=== PATIENT | female | born 1990 | race African-American/Black ===

== ENCOUNTER 2016-06-08 21:29 | Emergency (ER) | payer OTHER ==
[2016-06-08 21:44] VITALS: BP 98/68
[2016-06-08] MEDS ORDERED: FLUT9.9S NS (22:49)
--- NOTE | 2016-06-08 22:49 | PHYS DOC ---
Past Medical History Past Medical History: Asthma Past Surgical History: Additional Information: nonsmoker Alcohol Use: Heavy Additional Information: WINE 1 GLASS A DAY Drug Use: None Adult General Chief Complaint Chief Complaint: SORE THROAT HPI HPI Patient is a 25 year old female who presents with left ear pain and sore throat for 2 days. She denies fever, nasal congestion, or cough. She is concerned about strep throat because she works at the [employer] and does not want to spread germs. Her PCP is Dr. Rivka Angela. Review of Systems Review of Systems Constitutional: Denies fever or chills [] Eyes: Denies change in visual acuity, redness, or eye pain [] HENT: Denies nasal congestion. Reports left ear pain and sore throat. Respiratory: Denies cough or shortness of breath [] Musculoskeletal: Denies back pain or joint pain [] Integument: Denies rash or skin lesions [] Neurologic: Denies headache, focal weakness or sensory changes [] Allergies Allergies Allergies Coded Allergies Type Severity Reaction Last Updated Verified No Known Drug Allergies 06/08/16 No Physical Exam Physical Exam Constitutional: Well developed, well nourished, no acute distress, non-toxic appearance. [] HENT: Normocephalic, atraumatic, bilateral external ears normal, oropharynx moist, no oral exudates, nose normal. Bilateral TMs without erythema or bulging. There is no posterior pharyngeal erythema or tonsillar edema. Bilateral nasal turbinates are swollen and erythematous, with the left more swollen than the right. Eyes: PERRLA, EOMI, conjunctiva normal, no discharge. [] Neck: Normal range of motion, no tenderness, supple, no stridor. [] Cardiovascular: Heart rate regular rhythm, no murmur [] Lungs & Thorax: Bilateral breath sounds clear to auscultation without wheezes, rales, or rhonchi. Skin: Warm, dry, no erythema, no rash. [] Neurologic: Alert and oriented X 3, normal motor function, normal sensory function, no focal deficits noted. [] Psychologic: Affect normal, judgement normal, mood normal. [] Current Patient Data Vital Signs Vital Signs Date Time Temp Pulse Resp B/P Pulse Ox O2 Delivery O2 Flow Rate FiO2 06/08/16 21:44 97.9 71 18 99 Room Air 97.9 Lab Values rapid strep negative EKG EKG [] Radiology/Procedures Radiology/Procedures [] Course & Med Decision Making Course & Med Decision Making Pertinent Labs and Imaging studies reviewed. (See chart for details) [] Rayna Disclaimer Rayna Disclaimer This electronic medical record was generated, in whole or in part, using a voice recognition dictation system. Departure Departure Impression: Primary Impression: Otalgia of left ear Disposition: HOME, SELF-CARE Condition: STABLE Referrals: RIVKA ANGELA (PCP) Patient Instructions: Otalgia-Brief Additional Instructions: Your strep test was negative. Your pain appears to be due to nasal congestion. Please use the prescribed nasal spray on a daily basis to decrease swelling and drainage from the nose. Please follow up with your primary care provider within the next week. Return to the emergency department if you have any new or concerning symptoms. Scripts Fluticasone Propionate (Flonase Allergy Relief)9.9 Ml [place].susp2 Sprays NS DAILY #1 BOTTLE Prov:ROSALIA ADAMS 06/08/16 ROSALIA ADAMS Jun 08, 2016 22:49
[2016-06-09 09:46] LABS: NEGATIVE OBC STREP NEG; POSITIVE OBC STREP POS
== END 2016-06-08 23:03 | disposition home or self-care (01) ==
LOC: ER 21:29
DX: H92.02 Otalgia, left ear (principal); J45.909 Unspecified asthma, uncomplicated
CPT/HCPCS: 87070; 87880; 99283

== ENCOUNTER 2017-02-06 09:00 | Emergency (ER) | payer OTHER ==
[~2017-02-06] VITALS: Ht 167.6 cm; Wt 73.5 kg
[~2017-02-06 09:00] MED LIST: FLUT9.9S NS
--- NOTE | 2017-02-06 10:33 | PHYS DOC ---
Past Medical History Past Medical History: Asthma Past Surgical History: Alcohol Use: Heavy Additional Information: PT REPORTS DRINK WINE A COUPLE TIMES A WEEK Drug Use: None Adult General Chief Complaint Chief Complaint: VAGINAL PROBLEM HPI HPI Patient is a 26 year old -[place] female presents with vaginal itching and pain in discharge. Patient states she frequently gets yeast infections and feels as though she may currently have a yeast infection. Patient took Monistat [id number] yesterday with limited improvement. His abdominal pain, pelvic pain, recent or known STD exposure. Last menstrual period 3 weeks ago.] Review of Systems Review of Systems ROS as per HPI. All other systems were reviewed and found to be within normal limits, except as documented in this note. Allergies Allergies Allergies Coded Allergies Type Severity Reaction Last Updated Verified No Known Drug Allergies 06/08/16 No Physical Exam Physical Exam Constitutional: Well developed, well nourished, no acute distress, non-toxic appearance. [] HENT: Normocephalic, atraumatic, bilateral external ears normal, oropharynx moist, no oral exudates, nose normal. [] : External until he, normal, mucosa, mild erythema, copious cottage cheeselike discharge, cervix closed. lesions identified. Minimal tenderness on exam.[] Back: No tenderness, no CVA tenderness. [] Neurologic: Alert and oriented X 3, normal motor function, normal sensory function, no focal deficits noted. [] Psychologic: Affect normal, judgement normal, mood normal. [] Current Patient Data Vital Signs Vital Signs Date Time Temp Pulse Resp B/P (MAP) Pulse Ox O2 Delivery O2 Flow Rate FiO2 02/06/17 10:18 62 103/64 (77) 99 Room Air 02/06/17 09:06 98.7 16 98.7 Lab Values Laboratory Tests Test 02/06/17 09:07 02/06/17 09:12 POC Urine HCG, Qualitative Hcg negative (Negative) Urine Collection Type Void Urine Color Yellow Urine Clarity Hazy Urine pH 6.5 Urine Specific [place] 1.015 Urine Protein Negative mg/dL (NEG-TRACE) Urine Glucose (UA) Negative mg/dL (NEG) Urine Ketones (Stick) Negative mg/dL (NEG) Urine Blood Negative (NEG) Urine Nitrite Negative (NEG) Urine Bilirubin Negative (NEG) Urine Urobilinogen Dipstick 0.2 mg/dL (0.2 mg/dL) Urine Leukocyte Esterase Large (NEG) Urine RBC 1-2 /HPF (0-2) Urine WBC 5-10 /HPF (0-4) Urine Squamous Epithelial Cells Mod /LPF Urine Bacteria Few /HPF (0-FEW) Urine Mucus Slight /LPF Microbiology 02/06/17 Wet Prep - Final, Complete EKG EKG [] Radiology/Procedures Radiology/Procedures [] Course & Med Decision Making Course & Med Decision Making Pertinent Labs and Imaging studies reviewed. (See chart for details) [Antibiotic prescription provided for bacterial vaginosis and candidiasis. PCP/ FILTERING MACHINE TENDER follow-up recommended.] Dragon Disclaimer Dragon Disclaimer This electronic medical record was generated, in whole or in part, using a voice recognition dictation system. Departure Departure Impression: Primary Impression: Vaginitis and vulvovaginitis, unspecified Disposition: 01 HOME, SELF-CARE Condition: GOOD Referrals: RIVKA ANGELA (PCP) KATEY CAMPOS DO Feb 06, 2017 10:33
[2017-02-06 11:11] LABS: BILIRUBIN,URINE NEGATIVE (NEG); GLUCOSE,URINE NEGATIVE (NEG); NITRITE,URINE NEGATIVE (NEG); PH,URINE 6.5; PROTEIN,URINE NEGATIVE (NEG-TRACE); UROBILINOGEN,URINE 0.2 mg/dL (0.2 mg/dL)
[2017-02-06 11:32] LABS: BACTERIA,URINE FEW /HPF (0-FEW); SQUAMOUS EPITHELIAL CELL,UR MOD /LPF
[2017-02-06 12:15] VITALS: BP 102/60
== END 2017-02-06 12:15 | disposition home or self-care (01) ==
LOC: ER 09:00
DX: N76.0 Acute vaginitis (principal); Z20.2 Contact with and (suspected) exposure to infections with a predominantly sexual mode of transmission; J45.909 Unspecified asthma, uncomplicated; F10.10 Alcohol abuse, uncomplicated
CPT/HCPCS: 81001; 81025; 87086; 87491; 87591; 99284; Q0111

== ENCOUNTER 2017-10-11 16:59 | Emergency (ER) | payer OTHER ==
[2017-10-11 18:46] LABS: URINE HCG POC HCG NEGATIVE (Negative)
[2017-10-11 18:48] LABS: BILIRUBIN,URINE NEGATIVE (NEG); CLARITY,URINE CLEAR; COLOR,URINE YELLOW; GLUCOSE,URINE NEGATIVE (NEG); NITRITE,URINE NEGATIVE (NEG); PROTEIN,URINE NEGATIVE (NEG-TRACE); UROBILINOGEN,URINE 0.2 mg/dL (0.2 mg/dL)
[2017-10-11 19:08] LABS: BACTERIA,URINE MANY /HPF (0-FEW); RBC,URINE 0 /HPF (0-2); SQUAMOUS EPITHELIAL CELL,UR MANY /LPF
== END 2017-10-11 19:20 | disposition home or self-care (01) ==
LOC: ER 16:59
DX: R10.9 Unspecified abdominal pain (principal); R11.0 Nausea; J45.909 Unspecified asthma, uncomplicated; Z98.890 Other specified postprocedural states
CPT/HCPCS: 81001; 81025; 87086; 99284

== ENCOUNTER 2019-08-08 14:36 | Emergency (ER) | payer BC, OTHER ==
[~2019-08-08] VITALS: Ht 165.1 cm; Wt 72.0 kg
[2019-08-08 15:14] VITALS: BP 117/63
[2019-08-08 15:18] LABS: BILIRUBIN,URINE NEGATIVE (NEG); CLARITY,URINE CLEAR; COLOR,URINE YELLOW; NITRITE,URINE POSITIVE (NEG); PH,URINE 6.5 (<5.0-8.0); PROTEIN,URINE NEGATIVE (NEG-TRACE)
[2019-08-08 15:31] LABS: BASO # 0.1 x10^3/uL (0.0-0.2); BASO % 1 % (0-3); EOS # 0.1 x10^3/uL (0.0-0.7); EOS % 1 % (0-3); HEMATOCRIT 36.8 % (36.0-47.0); HEMOGLOBIN 12.5 g/dL (12.0-15.5); LYMPH % 31 % (24-48); MEAN CORPUSCULAR HEMOGLOBIN 28 pg (25-35); MEAN CORPUSCULAR HGB CONC 34 g/dL (31-37); MEAN CORPUSCULAR VOLUME 84 fL (79-100); MONO # 0.6 x10^3/uL (0.0-1.1); MONO % 9 % (0-9); NEUT # 3.7 x10^3/uL (1.8-7.7); NEUT % 58 % (31-73); PLATELET COUNT 334 x10^3/uL (140-400); RED CELL DISTRIBUTION WIDTH 12.6 % (11.5-14.5); WHITE BLOOD COUNT 6.4 x10^3/uL (4.0-11.0)
[2019-08-08 15:36] LABS: SQUAMOUS EPITHELIAL CELL,UR MOD /LPF
[2019-08-08 15:37] LABS: BACTERIA,URINE MANY /HPF (0-FEW); RBC,URINE 0 /HPF (0-2)
[2019-08-08 15:42] LABS: CALCIUM 8.5 mg/dL (8.5-10.1); CREATININE 0.8 mg/dL (0.6-1.0); GFR 101.9; POTASSIUM 3.6 mmol/L (3.5-5.1)
[2019-08-08 15:48] LABS: ALBUMIN 3.6 g/dL (3.4-5.0); TOTAL BILIRUBIN 0.9 mg/dL (0.2-1.0); TOTAL PROTEIN 7.2 g/dL (6.4-8.2)
--- NOTE | 2019-08-08 16:02 | PHYS DOC ---
Past Medical History Past Medical History: Asthma (BALDEMAR ZAMORA APRN) Past Surgical History: (BALDEMAR ZAMORA APRN) Smoking Status: Never Smoker Alcohol Use: None Drug Use: None (BALDEMAR ZAMORA APRN) General Adult EDM: Chief Complaint: ABDOMINAL PAIN IN HPI: HPI: Patient is a 28 year old female 3 para 1 with 1 elective currently 6 weeks who presents to the ED today complaining of mild intermittent sharp pelvic pain that began a couple minutes prior to coming to the ED. Patient denies anything specifically exacerbating or relieving the pain. She states she has not seen her FIXED INCOME MANAGER yet but plans to follow-up with [facility], she states she was told by the clinic should be following up with the to contact them when she is 11 weeks . (BALDEMAR ZAMORA APRN) Review of Systems: Review of Systems: Constitutional: Denies fever or chills. [] Eyes: Denies change in visual acuity. [] HENT: Denies nasal congestion or sore throat. [] Respiratory: Denies cough or shortness of breath. [] Cardiovascular: Denies chest pain or edema. [] GI: Reports abdominal pain in , denies nausea, vomiting, bloody stools or diarrhea. [] : Denies dysuria. [] Musculoskeletal: Denies back pain or joint pain. [] Integument: Denies rash. [] Neurologic: Denies headache, focal weakness or sensory changes. [] Psychiatric: Denies depression or anxiety. [] (BALDEMAR ZAMORA APRN) Heart Score: Risk Factors: Risk Factors: DM, Current or recent (<one month) smoker, HTN, HLP, family history of CAD, obesity. Risk Scores: Score 0 - 3: 2.5% MACE over next 6 weeks - Discharge Home Score 4 - 6: 20.3% MACE over next 6 weeks - Admit for Clinical Observation Score 7 - 10: 72.7% MACE over next 6 weeks - Early Invasive Strategies (BALDEMAR ZAMORA APRN) Allergies: Allergies: Allergies Coded Allergies Type Severity Reaction Last Updated Verified No Known Drug Allergies 06/08/16 No (BALDEMAR ZAMORA APRN) Physical Exam: PE: Constitutional: Well developed, well nourished, no acute distress, non-toxic appearance. [] HENT: Normocephalic, atraumatic, bilateral external ears normal, oropharynx moist, no oral exudates, nose normal. [] Eyes: PERRLA, EOMI, conjunctiva normal, no discharge. [] Neck: Normal range of motion, no tenderness, supple, no stridor. [] Cardiovascular:Heart rate regular rhythm, no murmur [] Lungs & Thorax: Bilateral breath sounds clear to auscultation [] Abdomen: Bowel sounds normal, soft, no tenderness, no masses, no pulsatile masses. [] Pelvic exam External pelvic appears normal, cervix is visualized, no CMT, adnexal tenderness, mild amount of white discharge noted in the vaginal vault Skin: Warm, dry, no erythema, no rash. [] Back: No tenderness, no CVA tenderness. [] Extremities: No tenderness, no cyanosis, no clubbing, ROM intact, no edema. [] Neurologic: Alert and oriented X 3, normal motor function, normal sensory function, no focal deficits noted. [] Psychologic: Affect normal, judgement normal, mood normal. [] (BALDEMAR ZAMORA APRN) Current Patient Data: Labs: Laboratory Tests Test 08/08/19 14:51 08/08/19 14:57 08/08/19 15:17 Urine Collection Type Unknown Urine Color Yellow Urine Clarity Clear Urine pH 6.5 (<5.0-8.0) Urine Specific [place] 1.015 (1.000-1.030) Urine Protein Negative mg/dL (NEG-TRACE) Urine Glucose (UA) Negative mg/dL (NEG) Urine Ketones (Stick) Negative mg/dL (NEG) Urine Blood Negative (NEG) Urine Nitrite Positive (NEG) Urine Bilirubin Negative (NEG) Urine Urobilinogen Dipstick 1.0 mg/dL (0.2 mg/dL) Urine Leukocyte Esterase Small (NEG) Urine RBC 0 /HPF (0-2) Urine WBC 11-20 /HPF (0-4) Urine Squamous Epithelial Cells Mod /LPF Urine Bacteria Many /HPF (0-FEW) Urine Mucus Marked /LPF POC Urine HCG, Qualitative Hcg positive (Negative) White Blood Count 6.4 x10^3/uL (4.0-11.0) Red Blood Count 4.40 x10^6/uL (3.50-5.40) Hemoglobin 12.5 g/dL (12.0-15.5) Hematocrit 36.8 % (36.0-47.0) Mean Corpuscular Volume 84 fL (79-100) Mean Corpuscular Hemoglobin 28 pg (25-35) Mean Corpuscular Hemoglobin Concent 34 g/dL (31-37) Red Cell Distribution Width 12.6 % (11.5-14.5) Platelet Count 334 x10^3/uL (140-400) Neutrophils (%) (Auto) 58 % (31-73) Lymphocytes (%) (Auto) 31 % (24-48) Monocytes (%) (Auto) 9 % (0-9) Eosinophils (%) (Auto) 1 % (0-3) Basophils (%) (Auto) 1 % (0-3) Neutrophils # (Auto) 3.7 x10^3/uL (1.8-7.7) Lymphocytes # (Auto) 2.0 x10^3/uL (1.0-4.8) Monocytes # (Auto) 0.6 x10^3/uL (0.0-1.1) Eosinophils # (Auto) 0.1 x10^3/uL (0.0-0.7) Basophils # (Auto) 0.1 x10^3/uL (0.0-0.2) Sodium Level 135 mmol/L (136-145) L Potassium Level 3.6 mmol/L (3.5-5.1) Chloride Level 100 mmol/L (98-107) Carbon Dioxide Level 24 mmol/L (21-32) Anion Gap 11 (6-14) Blood Urea Nitrogen 9 mg/dL (7-20) Creatinine 0.8 mg/dL (0.6-1.0) Estimated GFR (Cockcroft-Gault) 101.9 BUN/Creatinine Ratio 11 (6-20) Glucose Level 92 mg/dL (70-99) Calcium Level 8.5 mg/dL (8.5-10.1) Total Bilirubin 0.9 mg/dL (0.2-1.0) Aspartate Amino Transferase (AST) 12 U/L (15-37) L Alanine Aminotransferase (ALT) 18 U/L (14-59) Alkaline Phosphatase 45 U/L (46-116) L Total Protein 7.2 g/dL (6.4-8.2) Albumin 3.6 g/dL (3.4-5.0) Albumin/Globulin Ratio 1.0 (1.0-1.7) Laboratory Tests 08/08/19 15:17 Laboratory Tests 08/08/19 15:17 Microbiology 08/08/19 Wet Prep - Final, Complete Vital Signs: Vital Signs Date Time Temp Pulse Resp B/P (MAP) Pulse Ox O2 Delivery O2 Flow Rate FiO2 08/08/19 14:45 98.7 95 18 115/69 (84) 100 Room Air 98.7 (BALDEMAR ZAMORA APRN) EKG: EKG: [] (BALDEMAR ZAMORA APRN) Radiology/Procedures: Radiology/Procedures: []PROCEDURE: OB < 14 WKS OB < 14 WKS History: Abdominal pain. . Comparison: None. Technique: Grayscale and color Doppler imaging of the pelvis was performed using transabdominal technique. Findings: The uterus measures 8.6 x 7.6 x 5.8 cm in length. Single intrauterine gestational sac. Yolk sac and pole are identified. [place]-rump length measures 0.45 cm. Estimated gestational age by ultrasound 6 weeks 1 day. heart rate 110 bpm. Right ovary measures 3.6 x 2.5 x 2.0 cm. Corpus luteal cyst on the right measures 2.1 cm. Left ovary measures 2.7 x 1.9 x 1.2 cm. Cervical length 3.6 cm. No adnexal masses are seen. IMPRESSION: 1. Single intrauterine with gestational age 6 weeks 1 day with heart rate 110 bpm. Electronically signed by: Flash Pan DO (08/08/2019 3:59 PM) [id number] DICTATED and SIGNED BY: FLASH PAN DO DATE: 08/08/19 1559 (BALDEMAR ZAMORA APRN) Course & Med Decision Making: Course & Med Decision Making Pertinent Labs and Imaging studies reviewed. (See chart for details) This is a 28-year-old female patient presenting to the ED today with abdominal pain in , she is 6 weeks . Positive urine hCG, urine analysis noted for UTI, discharged on cephalexin. Wet prep with no acute findings. OB ultrasound noted for single intrauterine with gestational age 6 weeks 1 day with heart rate 110 bpm. D/c to home. She reported she will f/u with her OBGYN at [facility]. Provided return precautions (BALDEMAR ZAMORA APRN) Rayna Disclaimer: Rayna Disclaimer: This electronic medical record was generated, in whole or in part, using a voice recognition dictation system. (BALDEMAR ZAMORA APRN) Departure Departure Impression: Primary Impression: Abdominal pain during Qualified Codes: O26.891 - Other specified related conditions, first trimester; R10.9 - Unspecified abdominal pain Additional Impression: Urinary tract infection Qualified Codes: N39.0 - Urinary tract infection, site not specified Disposition: HOME, SELF-CARE Condition: STABLE Referrals: RIVKA ANGELA (PCP) Follow up with your OBGYN in 1-2 weeks Patient Instructions: Abdominal Pain During , - Urinary Tract Infection Additional Instructions: You were evaluated in the emergency room for abdominal pain in , you noted to be 6 weeks . You have urinary tract infection, complete the prescribed antibiotics, push fluids. You can take Tylenol for pain. Follow-up with your FIXED INCOME MANAGER in the next 1 to 2 weeks. Come back to the ED at any point symptoms worsen. Scripts Cephalexin (CEPHALEXIN) 500 Mg Tablet 1 TAB PO BID, #14 TAB Prov: BALDEMAR ZAMORA APRN 08/08/19 Attending Signature Attending Signature I have reviewed the PA/JEWISH THOUGHT PROFESSOR's note and plan of care. I was available for consultation as needed during the patient's visit in the emergency department. I agree with the clinical impression, plan, and disposition. (MANISH CARDENAS DO) BALDEMAR ZAMORA APRN August 08, 2019 16:02 MANISH CARDENAS DO August 09, 2019 13:27
[2019-08-08] MEDS ORDERED: CEPH500T PO (16:34)
[2019-08-09 17:09] LABS: GC PROBE Negative (Negative)
== END 2019-08-08 16:49 | disposition home or self-care (01) ==
LOC: ER 14:36
DX: O23.41 Unspecified infection of urinary tract in pregnancy, first trimester (principal); O99.511 Diseases of the respiratory system complicating pregnancy, first trimester; J45.909 Unspecified asthma, uncomplicated; Z3A.01 Less than 8 weeks gestation of pregnancy
CPT/HCPCS: 36415; 76801; 80053; 81001; 81025; 84702; 85025; 87086; 87491; 87591; 99284; Q0111